=== PATIENT | male | born 1960 ===

== ENCOUNTER → 2018-09-26 13:35 | Outpatient (CLI) | payer BC, SELFPAY ==
--- NOTE | 2018-09-26 15:02 | PM.TREADMILL ---
Cardiac Stress Test Report Referral & Results Date Patient Seen: 09/26/18 Requesting provider: Ethan Pacheco Indication: Chest pain Rest ECG: Unremarkable Procedure Note: Today following both written and verbal informed consent the patient was exercised according to a standard Osvaldo protocol patient went for a total of 8 min 37 sec achieving a maximum heart rate of 140 (motion artifact interfered a bit with heart rate determination) maximum systolic blood pressure of 180. This is approximately 10.1 METS. Exercise was terminated at this point because of targets were met. Patient was also given Cardiolite through a previously started Hep-Lock IV by the nuclear weapons mechanical specialist approximately 1 minute prior to the cessation of exercise. There are no ST-T segment changes identified Normal heart rate and blood pressure response to exercise Functional aerobic impairment rated 5% on the active scale Occasional PVCs and rare PACs identified however in recovery there were more frequent PVCs including a ventricular couplet Impression: No evidence of ischemia Average exercise capacity Dysrhythmias above, suggest echocardiogram to assess for possible structural heart disease Please note: Actual ECG tracings can be found in the PACS system.
--- NOTE | 2018-09-29 15:09 | DI.NM.S_ITS ---
DATE OF SERVICE: 09/26/2018 PROCEDURE: Exercise perfusion study. INDICATIONS: Dyspnea, chest pain. RADIOPHARMACEUTICAL: 25.2 mCi technetium-99m Myoview IV was injected at stress and 26.5 mCi technetium-99m Myoview IV was injected at rest. CARDIAC STRESS: Patient underwent exercise perfusion study under the supervision of an attending staff. He walked on Osvaldo protocol for 8 minutes 37 seconds and achieved 121% of target heart rate. Baseline blood pressure 132/90. Peakte blood pressure 180/100. Patient achieved 10.1 METs of workload and functional aerobic impairment +5%. Patient felt fatigue. Baseline EKG revealed sinus rhythm. During stress, there was no obvious convincing ischemic changes. Patient had intermittent PVCs, rare PACs, and ventricular couplet without any ventricular tachycardia. At peak exercise, no significant ventricular arrhythmias seen but isolated PVCs reappeared in recovery and became more frequent with ventricular quadrageminy and bigeminy pattern. No obvious ventricular tachycardia seen. RAW DATA: There was increased subdiaphragmatic activity. Patient's weight is 207 pounds. GATED STUDY: Stress LV ejection fraction 78%. No obvious wall motion abnormalities. Resting end-diastolic volume is 107 mL. No transient ischemic dilatation. TID ratio is 0.46, which is within normal limits. Lung/heart ratio is 0.28, which is within normal limits. MYOCARDIAL PERFUSION SCAN: Stress supine and resting supine images revealed moderate-sized mildly decreased perfusion of inferior wall which got completely resolved during prone images suggestive of diaphragmatic tissue attenuation artifact. CONCLUSION: I will call this study likely normal myocardial perfusion study with evidence of diaphragmatic tissue attenuation artifact which got resolved during prone images. Frequent premature ventricular contractions (PVCs) during early part of exercise, as well as in recovery, without any ventricular tachycardia. PVCs mostly monomorphic. Functional aerobic impairment +5%. Clinical correlation is recommended. Thierno Castellon - KODY/[employer]/ doc#: [id number]/job#: [id number] dd: 09/29/2018 12:54:00 dt: 09/29/2018 14:56:00 DICTATING MD/COPIES TO: Philip Mccormick MD COPIES MNE: JOSE DE JESUS
== END ==
PROVIDERS: PCP Family Medicine; Visit Provider Family Medicine
DX: R06.00 Dyspnea, unspecified (principal); R07.9 Chest pain, unspecified; I49.3 Ventricular premature depolarization
CPT/HCPCS: 78452; 93016; 93017; 93018; A9502

== ENCOUNTER 2020-12-30 12:35 | Day surgery (SDC) | payer OTHER, SELFPAY ==
--- NOTE | 2020-12-30 | PATH_ITS ---
[facility] Accession Number: [id number] . 01 Material submitted: . PART A: colon - TRANSVERSE POLYP 4MM PART B: colon - SIGMOID POLYP 4MM . 02 Diagnosis: A. Transverse Colon, Polyp, 4 MM, Biopsy: Tubular adenoma. . B. Sigmoid Colon, Polyp, 4 MM, Biopsy: Hyperplastic polyp. [facility] 01/05/2021 1440 Local . 02 Electronically signed: . Jayshree Smyth MD, Pathologist NPI- [id number] . 01 Gross description: . Part A: TRANSVERSE POLYP 4MM: Received in formalin are 2 fragment(s) of dill, soft tissue measuring 0.5 x 0.4 x 0.3 cm to 0.3 x 0.2 x 0.2 cm submitted entirely in 1 cassette(s) Part B: SIGMOID POLYP 4MM: Received in formalin is 1 fragment(s) of dill, soft tissue measuring 0.3 x 0.2 x 0.2 cm submitted entirely in 1 cassette(s) /[facility] 01/02/2021 1043 Local . 02 Pathologist provided ICD-10: D12.3 . 02 CPT . 958921, [id number] Performed at: 01 [facility] [address], [place], [place] [id number] MD Fantasma Land MD Phone: [phone] Performed at: 02 [facility] [address] [place], [place] [id number] MD Jayshree Smyth MD Phone: [phone]
--- NOTE | 2020-12-30 12:04 | PM.HP.1 ---
History of Present Illness History of Present Illness Date Patient Seen: 12/30/20 [place] [facility] [facility] [place]: 60 Years Old Male seen today for consideration of a screening colonoscopy. Last colonoscopy 2005, normal. Does have a significant family history of colon cancer in his mother and her identical twin sister, diagnosed in their 60/70s. Colon cancer was fatal in his maternal aunt. There have been no lower GI symptoms suggesting disease such as a change in bowel habits, bleeding, abdominal pain or anemia. Overall health issues have been stable, including no major cardiac events for at least 6 weeks. Past Medical History: Chest pain, atypical ASTHMA RHINITIS, ALLERGIC Past Surgical History: Colonoscopy, normal, 2006 Tonsillectomy as a child Family History: Father: Coronary Artery Disease ( CABG x2 ); Myocardial Infarction ( at age 48 ), Deafness, Diabetes Mother: Colon Cancer, 75 Materanl aunt: colon cancer, late 60s Siblings: Social History: Reviewed history from 08/11/2014 and no changes required: Marital Status: - Housewife Children: Jasson (1984), Jina (1986) Occupation: Business Ship Engineer - [employer] Education: 12 years Meds Home Medications and Allergies Home Medications Medication Instructions Recorded Confirmed Type albuterol sulfate [ProAir HFA] 2 puff INHALATION Q4-6H PRN 12/30/20 12/30/20 History cetirizine [Zyrtec] 10 mg PO DAILY 12/30/20 12/30/20 History Allergies Allergy/AdvReac Type Severity Reaction Status Date / Time bacitracin [From Polysporin] Allergy Intermediate Rash Verified 12/30/20 13:17 polymyxin B [From Polysporin] Allergy Intermediate Rash Verified 12/30/20 13:17 Review of Systems Review of Systems ROS: Yes All systems reviewed with the patient and are negative except as otherwise documented Exam Narrative Exam Narrative: General: well developed, well nourished, in no acute distress, Head: normocephalic and atraumatic, Lungs: normal respiratory effort, clear bilaterally to auscultation, no wheezes rales or rhonchi. Heart: normal rate and regular rhythm, no murmurs, rubs, gallops, or clicks, Abdomen: abdomen soft and non-tender without masses, organomegaly, or abdominal wall hernias, bowel sounds positive. Skin: intact without suspicious lesions or rashes, Psych: alert and cooperative; normal mood and affect; normal attention span and concentration; cognition, remote and recent memory appear to be intact, Assessment & Plan Assessment & Plan narrative: 1. Family history of colon cancer, 2. Screening for colon cancer Plan for colonoscopy. The nature and character of the procedure as well as anticipated results were discussed. The possibility of not completing the procedure was also discussed. Possible complications including aspiration pneumonia, bleeding, perforation and reaction to medications either for sedation or preparation and missed lesions were discussed. Questions were answered and proceeding to the colonoscopy was elected. Informed consent signed. I sincerely appreciate the referral allowing me to participate in this patient's care. Please contact me with any questions or concerns.
--- NOTE | 2020-12-30 12:06 | PM.OP.ENDO ---
Operative Date/Time/Diagnoses Date of procedure: 12/30/20 Procedure Notes SCOAP/Timeout: 2:07 p.m. Procedure in detail: ENDOSCOPIST: Komal Pulliam MD Sedation RN: Jaja Gresham RN Sedation start time: 2:08 p.m. Sedation end time: 2:32 p.m. PROCEDURE: Colonoscopy with biopsy, cold INDICATIONS: 1. Family history of colon cancer, father 2. Screening for colon cancer MEDICATION: Levsin 0.125 mg sublingual, incremental doses of Versed and fentanyl until appropriate level sedation achieved. ASA CLASS: 2 CECAL WITHDRAWAL TIME: 15 minutes COMPLICATIONS: None. EXTENT OF PROCEDURE: Cecum. QUALITY OF PREP: Good with portions of liquid stool. PROCEDURE: Prior to insertion of the colonoscope, a digital rectal examination was accomplished with circumferential palpation of the distal rectal mucosa without significant findings being noted. The high-definition colonoscope was passed into the rectum in the usual fashion and advanced over to the cecum without difficulty. The ileocecal valve, appendiceal stoma, and medial wall all could be inspected and no abnormalities were seen. ASCENDING COLON: As the colonoscope was withdrawn, care was taken to expose and inspect the haustral folds and no abnormalities were seen. HEPATIC FLEXURE: Normal, no polyps, diverticula or other abnormalities. TRANSVERSE COLON: Normal, no polyps, diverticula or other abnormalities. DESCENDING COLON: 4 mm polyp removed with cold biopsy forceps. Otherwise, normal, no diverticula or other abnormalities. SIGMOID COLON: 4 mm polyp removed with cold biopsy forceps. Otherwise, normal, no diverticula or other abnormalities. RECTUM: Normal. J maneuver was produced. There was no significant perianal disease. The J maneuver was broken. The remainder of the rectum was inspected and there was no external hemorrhoid disease. The scope was withdrawn. IMPRESSION: 1. Transverse polyp x1, 4 mm, removed with cold biopsy forceps 2. Sigmoid polyp x1, 4 mm, removed cold biopsy forceps PLAN: 1. Follow-up in clinic status post pathology results. The possibility of a missed lesion including a malignancy has been discussed with the patient previously. Potential alarm symptoms have been discussed and should be reported immediately.
[2020-12-30] MEDS: HYOSCYAMINE 0.125 MG TABLET PO ×2 (13:18→13:20)
[2020-12-30] MEDS: LACTATED RINGERS 1,000 ML 200 ML IV (13:27)
[2020-12-30 13:28] VITALS: BP 147/85; PULSE 73; RESP 12; TEMP 36.2; O2SAT 98; BMI 29.4
--- NOTE | 2020-12-30 13:40 | SUR.PREOP ---
Pt unable to open email result for covid test. Rapid covid done per orders of Dr Pulliam.
[2020-12-30 13:59] LABS: COVID19 -Nasal RAPID Negative (Negative)
[2020-12-30] MEDS: MIDAZOLAM 5 MG/5 ML VIAL IV (14:13)
[2020-12-30] MEDS: fentaNYL 250 MCG/5 ML INJ IV (14:14)
[2020-12-30 14:37] VITALS: BP 110/80; PULSE 77; RESP 15; TEMP 36.7; O2SAT 95
[2020-12-30 14:40] VITALS: BP 110/80; PULSE 71; RESP 14; O2SAT 98
[2020-12-30 14:45] VITALS: BP 110/77; PULSE 77; RESP 14; TEMP 36.6; O2SAT 98
== END 2020-12-30 14:56 | disposition home or self-care (01) ==
PROVIDERS: PCP Family Medicine; Referring Provider Student in an Organized Health Care Education/Training Program; Visit Provider Student in an Organized Health Care Education/Training Program
PROC: 0DJD8ZZ Inspection of Lower Intestinal Tract, Via Natural or Artificial Opening Endoscopic (ICD-10-PCS; CPT 45378; principal; 2020-12-30 13:45)
DX: Z12.11 Encounter for screening for malignant neoplasm of colon (principal); Z80.0 Family history of malignant neoplasm of digestive organs; D12.3 Benign neoplasm of transverse colon; K63.5 Polyp of colon; J45.909 Unspecified asthma, uncomplicated; Z20.822 Contact with and (suspected) exposure to COVID-19
CPT/HCPCS: 45380; 87635; J2250; J3010